=== PATIENT | female | born 1975 | race Caucasian/White ===

== ENCOUNTER 2017-07-23 09:16 | Outpatient (CLI) | payer OTHER ==
[~2017-07-23 09:16] MED LIST: DICLOFENAC POTA50 MG PO; SYNTHROID125 MCG PO
== END 2017-07-23 17:58 | disposition home or self-care (01) ==
LOC: LAB 09:16
DX: N92.5 Other specified irregular menstruation (principal); E03.8 Other specified hypothyroidism; D50.8 Other iron deficiency anemias; I10 Essential (primary) hypertension; M85.80 Other specified disorders of bone density and structure, unspecified site

== ENCOUNTER → 2017-07-30 14:27 | Outpatient (CLI) | payer OTHER | END | disposition home or self-care (01) | LOC: LAB 14:27 | DX: N39.0 Urinary tract infection, site not specified (principal) ==

== ENCOUNTER → 2017-08-06 | Outpatient (CLI) | payer OTHER | END | disposition home or self-care (01) | LOC: LAB 13:08 | DX: N39.0 Urinary tract infection, site not specified (principal); R82.79 Other abnormal findings on microbiological examination of urine ==

== ENCOUNTER → 2017-09-20 | Outpatient (CLI) | payer OTHER | END | disposition home or self-care (01) | LOC: LAB 09-17 17:54 | DX: E11.9 Type 2 diabetes mellitus without complications (principal) ==

== ENCOUNTER 2018-03-28 08:53 | Outpatient (CLI) | payer OTHER | END 2018-03-28 13:47 | disposition home or self-care (01) | LOC: LAB 08:53 | DX: E03.8 Other specified hypothyroidism (principal); E78.2 Mixed hyperlipidemia; I10 Essential (primary) hypertension; N39.0 Urinary tract infection, site not specified; E73.8 Other lactose intolerance ==

== ENCOUNTER 2018-07-22 08:39 | Outpatient (CLI) | payer OTHER | END 2018-07-22 10:22 | disposition home or self-care (01) | LOC: LAB 08:39 | DX: I10 Essential (primary) hypertension (principal); E03.8 Other specified hypothyroidism; E78.00 Pure hypercholesterolemia, unspecified ==

== ENCOUNTER 2018-09-22 08:35 | Outpatient (CLI) | payer OTHER | END 2018-09-22 13:19 | disposition home or self-care (01) | LOC: LAB 08:35 | DX: N92.5 Other specified irregular menstruation (principal); E03.8 Other specified hypothyroidism; I10 Essential (primary) hypertension; D50.8 Other iron deficiency anemias; M85.80 Other specified disorders of bone density and structure, unspecified site; L03.818 Cellulitis of other sites ==

== ENCOUNTER 2018-09-28 13:49 | Outpatient (CLI) | payer OTHER | END 2018-09-28 13:50 | disposition home or self-care (01) | LOC: LAB | DX: L02.214 Cutaneous abscess of groin (principal) ==

== ENCOUNTER 2018-10-11 14:24 | Outpatient (CLI) | payer OTHER | END 2018-10-11 14:30 | disposition home or self-care (01) | LOC: LAB 14:24 | DX: Z22.322 Carrier or suspected carrier of Methicillin resistant Staphylococcus aureus (principal) ==

== ENCOUNTER 2019-01-20 12:12 | Outpatient (CLI) | payer OTHER | END 2019-01-20 16:15 | disposition home or self-care (01) | LOC: LAB 12:12 | DX: N39.0 Urinary tract infection, site not specified (principal) ==

== ENCOUNTER 2019-04-12 11:39 | Outpatient (CLI) | payer OTHER | END 2019-04-12 16:14 | disposition home or self-care (01) | LOC: LAB 11:39 | DX: R53.83 Other fatigue (principal) ==

== ENCOUNTER 2019-06-05 10:55 | Outpatient (CLI) | payer OTHER | END 2019-06-05 15:56 | disposition home or self-care (01) | LOC: LAB 10:55 | DX: J11.1 Influenza due to unidentified influenza virus with other respiratory manifestations (principal) ==

== ENCOUNTER 2019-08-22 08:59 | Outpatient (CLI) | payer OTHER | END 2019-08-22 17:20 | disposition home or self-care (01) | LOC: LAB 08:59 | DX: J11.1 Influenza due to unidentified influenza virus with other respiratory manifestations (principal); N39.0 Urinary tract infection, site not specified ==

== ENCOUNTER 2019-12-05 14:43 | Outpatient (CLI) | payer OTHER | END 2019-12-05 14:54 | disposition home or self-care (01) | LOC: LAB 14:43 | PROVIDERS: ATTEND Internal Medicine | DX: R53.83 Other fatigue (principal) ==

== ENCOUNTER → 2019-12-07 14:22 | Outpatient (CLI) | payer OTHER | END | disposition home or self-care (01) | LOC: LAB 14:22 | PROVIDERS: ATTEND Internal Medicine | DX: Z20.828 Contact with and (suspected) exposure to other viral communicable diseases (principal) ==

== ENCOUNTER 2020-02-13 16:40 | Outpatient (CLI) | payer OTHER | END 2020-02-13 16:42 | disposition home or self-care (01) | LOC: CERTIFICAD 16:40 | DX: Z11.1 Encounter for screening for respiratory tuberculosis (principal) ==

== ENCOUNTER 2020-03-14 14:28 | Outpatient (CLI) | payer OTHER | END 2020-03-14 14:49 | disposition home or self-care (01) | LOC: RAD 14:28 | PROVIDERS: ATTEND Internal Medicine | DX: M79.672 Pain in left foot (principal) ==

== ENCOUNTER → 2020-05-02 10:14 | Outpatient (CLI) | payer OTHER | END | disposition home or self-care (01) | LOC: LAB 10:14 | PROVIDERS: ATTEND Physical Medicine & Rehabilitation | DX: Z20.828 Contact with and (suspected) exposure to other viral communicable diseases (principal); Z11.59 Encounter for screening for other viral diseases ==

== ENCOUNTER 2020-05-20 07:03 | Outpatient (CLI) | payer OTHER | END 2020-05-20 15:00 | disposition home or self-care (01) | LOC: LAB 07:03 | DX: Z20.828 Contact with and (suspected) exposure to other viral communicable diseases (principal); E03.8 Other specified hypothyroidism; Z11.59 Encounter for screening for other viral diseases; I10 Essential (primary) hypertension; E78.00 Pure hypercholesterolemia, unspecified; E78.49 Other hyperlipidemia; E55.9 Vitamin D deficiency, unspecified ==

== ENCOUNTER 2020-06-11 14:32 | Outpatient (CLI) | payer OTHER | END 2020-06-11 18:00 | disposition home or self-care (01) | LOC: PPH VACUNA 14:32 | DX: Z23 Encounter for immunization (principal) ==

== ENCOUNTER 2020-06-13 14:40 | Outpatient (CLI) | payer OTHER | END 2020-06-13 16:31 | disposition home or self-care (01) | LOC: MAMO-SONO 14:40 | PROVIDERS: ATTEND Obstetrics & Gynecology | DX: R92.2 Inconclusive mammogram (principal); N64.4 Mastodynia ==

== ENCOUNTER 2020-07-10 11:13 | Outpatient (CLI) | payer OTHER | END 2020-07-10 15:07 | disposition home or self-care (01) | LOC: SONOGRAMA 11:13 | DX: D25.1 Intramural leiomyoma of uterus (principal) ==

== ENCOUNTER 2020-07-24 17:40 | Outpatient (CLI) | payer OTHER | END 2020-07-24 19:00 | disposition home or self-care (01) | LOC: LAB 17:40 | PROVIDERS: ATTEND Internal Medicine | DX: U07.1 COVID-19 (principal); R05 Cough ==

== ENCOUNTER 2020-08-12 12:51 | Outpatient (CLI) | payer OTHER | END 2020-08-12 15:00 | disposition home or self-care (01) | LOC: LAB 12:51 | PROVIDERS: ATTEND Physical Medicine & Rehabilitation | DX: Z23 Encounter for immunization (principal) ==